=== PATIENT | male | born 2005 | race Caucasian/White ===

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

== ENCOUNTER 2024-12-18 16:50 | Emergency (ER) | payer BC ==
[~2024-12-18] VITALS: Ht 177.8 cm; Wt 87.5 kg
[2024-12-18] MEDS ORDERED: DIGO0.253 (17:01)
[2024-12-18] MEDS: ADENOSINE 6MG 2ML INJECTION IV STA ×3 (17:11→17:15)
[2024-12-18 18:26] VITALS: BP 118/62; TEMP 98.4; O2SAT 97
== END 2024-12-18 18:33 | disposition home or self-care (01) ==
LOC: M ED 16:50
DX: I47.10 Supraventricular tachycardia, unspecified (principal)
CPT/HCPCS: 80162; 92960; 93005; 93041; 94760; 96374; 99285; J0153